=== PATIENT | female | born 1945 | race Caucasian/White ===

== ENCOUNTER 2021-09-19 08:22 | Inpatient (IN) ==
[2021-09-19 08:59] LABS: Basophils # 0.1 10*3/uL (0.0-0.2); Basophils % 1.2 % (0.0-0.8); Eosinophils # 0.3 10*3/uL (0.0-0.87); Eosinophils % 2.9 % (0.00-10.9); Hematocrit 43.8 VOL% (35.7-47.0); Hemoglobin 14.3 GM/DL (12.0-16.0); Immature Granulocytes % 0.3 %; Immature Granulocytes Absolute 0.04 #; Lymphocytes # 3.1 10*3/uL (1.4-4.0); Lymphocytes % 26.4 % (21.3-54.2); Mean Corpuscular HGB Conc 32.6 GM/DL (32-36); Mean Corpuscular Volume 90.3 FL (87-102); Mean Platelet Volume 11.5 FL (9.6-12.0); Monocytes % 10.4 % (1.7-12.7); Neutrophils % 58.8 % (38.7-73.9); Platelet Count 310 T/CUMM (130-400); Red Blood Count 4.85 MC/CUMM (3.8-5.5); White Blood Count 11.7 T/CUMM (4-12)
[2021-09-19 09:14] LABS: Alanine Aminotransferase 20 U/L (13-56); Albumin 3.3 G/DL (3.4-5.0); Alkaline Phosphatase 73 U/L (45-117); Aspartate Amino Transferase 13 U/L (0-37); Bilirubin,Total < 0.39 MG/DL (0.20-1.00); Blood Urea Nitrogen 28 MG/DL (7-18); Calcium 9.5 MG/DL (8.5-10.1); Carbon Dioxide 22 MMOL/L (21-32); Estimated Glom Filtration Rate 54 ML/MIN; Glucose 113 MG/DL (74-106); Osmolality,Calculated 289.1 MOS/KG (273-304); Potassium 4.2 MMOL/L (3.5-5.1); Sodium 142 MMOL/L (136-145); Total Protein 7.2 G/DL (6.4-8.2)
[2021-09-19 09:30] LABS: INR 0.9; PT Patient Result 10.5 SECS (10.5-12.0)
[2021-09-19 10:03] LABS: Bacteria,Urine Occasional /HPF (Few); Mucus,Urine Occasional /LPF (Occasional); RBC,Urine 2 /HPF (0-4); Squamous Epithelial Cell,Urine Occasional /HPF (0-10)
[2021-09-19 10:08] LABS: Glucose,Urine (UA) Negative (Negative); Ketones,Urine Negative (Negative); Protein,Urine Negative (Negative); Urine Appearance Clear (Clear); Urine Color Yellow (Yellow); Urine Specific Gravity 1.015 (1.001-1.035)
[2021-09-19 10:09] LABS: Bilirubin,Urine Negative (Negative); Blood, Urine Trace mg/dL (Negative); Nitrite,Urine Negative (Negative); Urine Urobilinogen 0.2 eU/dL (<2.0)
[2021-09-19] MEDS ORDERED: ACETAMINOPHEN 325 MG TABLET PO PRN (10:49)
[2021-09-19] MEDS ORDERED: GLUCAGON 1 MG VIAL IM PRN (10:49)
[2021-09-19] MEDS ORDERED: ONDANSETRON 4 MG/2 ML VIAL IV PRN (10:49)
[2021-09-19] MEDS ORDERED: DEXTROSE 10% 250 ML BAG IV PRN (11:34)
[2021-09-19] MEDS: CLOPIDOGREL 75 MG TABLET PO SCH (11:48)
[2021-09-19] MEDS: ATORVASTATIN 40 MG TABLET PO SCH (21:08)
[2021-09-20] MEDS: NICOTINE 21 MG/24 HR PATCH TRANSDERM SCH (04:41)
[2021-09-20 05:26] LABS: Basophils # 0.1 10*3/uL (0.0-0.2); Eosinophils # 0.4 10*3/uL (0.0-0.87); Eosinophils % 2.8 % (0.00-10.9); Hematocrit 43.6 VOL% (35.7-47.0); Hemoglobin 14.1 GM/DL (12.0-16.0); Immature Granulocytes % 0.4 %; Immature Granulocytes Absolute 0.05 #; Lymphocytes # 3.7 10*3/uL (1.4-4.0); Lymphocytes % 29.6 % (21.3-54.2); Mean Corpuscular HGB Conc 32.3 GM/DL (32-36); Mean Corpuscular Volume 90.3 FL (87-102); Monocytes % 9.1 % (1.7-12.7); Neutrophils % 57.1 % (38.7-73.9); Platelet Count 293 T/CUMM (130-400); Red Blood Count 4.83 MC/CUMM (3.8-5.5); Red Cell Distribution Width 13.9 % (9.3-17.3); White Blood Count 12.4 T/CUMM (4-12)
[2021-09-20] MEDS: LEVOTHYROXINE 75 MCG TABLET PO SCH (05:39)
[2021-09-20 05:48] LABS: Calcium 9.5 MG/DL (8.5-10.1); Osmolality,Calculated 287.8 MOS/KG (273-304); Potassium 3.7 MMOL/L (3.5-5.1); Risk Ratio 3.03; VLDL Cholesterol 32.8 MG/DL
[2021-09-20] MEDS: ASPIRIN CHEW 81 MG TABLET PO SCH (09:10)
[2021-09-20] MEDS: CLOPIDOGREL 75 MG TABLET PO SCH (09:10)
[2021-09-20] MEDS: PANTOPRAZOLE 40 MG TABLET PO SCH (09:11)
[2021-09-20] MEDS ORDERED: APIXABAN 5 MG TABLET PO SCH (12:00)
[2021-09-20] MEDS: ATORVASTATIN 40 MG TABLET PO SCH (20:46)
[2021-09-21] MEDS: LEVOTHYROXINE 75 MCG TABLET PO SCH (06:24)
[2021-09-21] MEDS: NICOTINE 21 MG/24 HR PATCH TRANSDERM SCH (08:12)
[2021-09-21] MEDS: CLOPIDOGREL 75 MG TABLET PO SCH (08:13)
[2021-09-21] MEDS: ASPIRIN CHEW 81 MG TABLET PO SCH (08:13)
[2021-09-21] MEDS: PANTOPRAZOLE 40 MG TABLET PO SCH (08:13)
[2021-09-21] MEDS ORDERED: LIDOCAINE 1%/EPI INJ 20 ML VIAL ONE (11:17)
[2021-09-21] MEDS ORDERED: TISSUE ADHESIVE 1 EACH APPLICATOR TOP ONE (11:17)
[2021-09-21] MEDS: ATORVASTATIN 40 MG TABLET PO SCH (20:25)
[2021-09-21] MEDS: ZALEPLON 5 MG CAPSULE PO PRN (20:25)
[2021-09-21] MEDS: FLUoxetine 20 MG CAPSULE PO SCH (20:25)
[2021-09-22] MEDS: LEVOTHYROXINE 75 MCG TABLET PO SCH (08:23)
[2021-09-22] MEDS: CLOPIDOGREL 75 MG TABLET PO SCH (08:23)
[2021-09-22] MEDS: ASPIRIN CHEW 81 MG TABLET PO SCH (08:23)
[2021-09-22] MEDS: NICOTINE 21 MG/24 HR PATCH TRANSDERM SCH (08:24)
[2021-09-22] MEDS: PANTOPRAZOLE 40 MG TABLET PO SCH (08:24)
[2021-09-22 08:34] LABS: Basophils # 0.1 10*3/uL (0.0-0.2); Basophils % 1.2 % (0.0-0.8); Eosinophils # 0.2 10*3/uL (0.0-0.87); Eosinophils % 1.8 % (0.00-10.9); Hematocrit 48.2 VOL% (35.7-47.0); Hemoglobin 15.9 GM/DL (12.0-16.0); Immature Granulocytes % 0.4 %; Immature Granulocytes Absolute 0.04 #; Lymphocytes # 3.3 10*3/uL (1.4-4.0); Lymphocytes % 29.1 % (21.3-54.2); Mean Corpuscular Volume 88.8 FL (87-102); Mean Platelet Volume 10.8 FL (9.6-12.0); Monocytes % 10.9 % (1.7-12.7); Neutrophils % 56.6 % (38.7-73.9); Platelet Count 312 T/CUMM (130-400); Red Blood Count 5.43 MC/CUMM (3.8-5.5); Red Cell Distribution Width 13.6 % (9.3-17.3); White Blood Count 11.3 T/CUMM (4-12)
[2021-09-22 09:08] LABS: Calcium 9.3 MG/DL (8.5-10.1); Osmolality,Calculated 283.3 MOS/KG (273-304); Potassium 4.3 MMOL/L (3.5-5.1)
[2021-09-22] MEDS: ATORVASTATIN 40 MG TABLET PO SCH (21:04)
[2021-09-22] MEDS: FLUoxetine 20 MG CAPSULE PO SCH (21:04)
[2021-09-22] MEDS: ZALEPLON 5 MG CAPSULE PO PRN (23:40)
[2021-09-23] MEDS: LEVOTHYROXINE 75 MCG TABLET PO SCH (05:35)
[2021-09-23 06:46] LABS: Basophils # 0.1 10*3/uL (0.0-0.2); Eosinophils # 0.3 10*3/uL (0.0-0.87); Eosinophils % 2.2 % (0.00-10.9); Hematocrit 46.9 VOL% (35.7-47.0); Hemoglobin 15.6 GM/DL (12.0-16.0); Immature Granulocytes % 0.4 %; Immature Granulocytes Absolute 0.05 #; Lymphocytes # 3.3 10*3/uL (1.4-4.0); Lymphocytes % 28.3 % (21.3-54.2); Mean Corpuscular HGB Conc 33.3 GM/DL (32-36); Mean Corpuscular Volume 88.2 FL (87-102); Mean Platelet Volume 11.5 FL (9.6-12.0); Monocytes % 10.7 % (1.7-12.7); Neutrophils % 57.4 % (38.7-73.9); Platelet Count 315 T/CUMM (130-400); Red Blood Count 5.32 MC/CUMM (3.8-5.5); Red Cell Distribution Width 13.6 % (9.3-17.3); White Blood Count 11.6 T/CUMM (4-12)
[2021-09-23 06:59] LABS: Calcium 9.3 MG/DL (8.5-10.1); Osmolality,Calculated 280.5 MOS/KG (273-304); Potassium 3.8 MMOL/L (3.5-5.1)
[2021-09-23] MEDS: PANTOPRAZOLE 40 MG TABLET PO SCH (08:37)
[2021-09-23] MEDS: CLOPIDOGREL 75 MG TABLET PO SCH (08:37)
[2021-09-23] MEDS: ASPIRIN CHEW 81 MG TABLET PO SCH (08:37)
[2021-09-23] MEDS: NICOTINE 21 MG/24 HR PATCH TRANSDERM SCH (08:37)
[2021-09-23 16:30] VITALS: BP 123/72
[2021-09-23] MEDS ORDERED: amLODIPine 2.5 MG TABLET PO SCH (21:00)
== END 2021-09-23 17:00 | DRG 41 ==
LOC: N.EDINP 08:22 → N.ED 08:22 → SUATTDRO 11:25 → N.3E 12:09 → SUATTDRO 09-20 10:05
PROVIDERS: ADMIT Emergency Medicine; ATTEND Family Medicine